=== PATIENT | male | born 1955 | race Caucasian/White ===

== ENCOUNTER 2017-03-08 14:08 | Emergency (ER) | payer OTHER ==
[~2017-03-08] VITALS: Ht 190.5 cm; Wt 105.0 kg
[2017-03-08 14:23] VITALS: BP 223/95; PULSE 50; RESP 16; TEMP 97.9; O2SAT 99
--- NOTE | 2017-03-08 14:57 | PD ---
HPI Chief Complaint: Back/ Neck Pain or Injury Time Seen by Provider: 14:40 Travel History International Travel<30 days: No Contact w/Intl Traveler<30days: No Traveled to known affect area: No History of Present Illness HPI 61yo M with PMH of alcohol abuse, multiple abdominal surgeries here with right lower back pain since yesterday. Pain is more paraspinal and right flank region and nonradiating. Had nausea and nonbloody vomiting today. Denies any fever, chest pain, sob, dysuria, hematuria, focal weakness or numbness, trauma. Denies any history of nephrolithiasis. PFSH Past Medical History Diminished Hearing: No Diverticulitis: Yes Hiatal Hernia: Yes Tetanus Vaccination: Unknown Influenza Vaccination: Yes ?: Not Past Surgical History Abdominal Surgery: Yes (Hernia repair multiple times, bowel resection, small bowel obstruction) Appendectomy: Yes Other Surgery: Yes (colostomy with reversal) Social History Alcohol Use: Yes (10/day) Tobacco Use: Yes (e cig) Substance Use: No Allergies-Medications (Allergen,Severity, Reaction): Coded Allergies: Penicillins (Verified Allergy, Unknown, 03/08/17) Reported Meds & Prescriptions Reported Meds & Active Scripts Active No Active Prescriptions or Reported Medications Review of Systems Except as stated in HPI: all other systems reviewed are Neg Physical Exam Narrative GENERAL: 61yo M in mild distress. SKIN: Focused skin assessment warm/dry. HEAD: Atraumatic. Normocephalic. EYES: Pupils equal and round. No scleral icterus. No injection or drainage. ENT: No nasal bleeding or discharge. Mucous membranes pink and moist. NECK: Trachea midline. No JVD. CARDIOVASCULAR: Regular rate and rhythm. No murmur appreciated. RESPIRATORY: No accessory muscle use. Clear to auscultation. Breath sounds equal bilaterally. GASTROINTESTINAL: Abdomen soft, +TTP epigastric region. +TTP right flank. No rebound tenderness or guarding. BACK: +CVA tenderness right. MUSCULOSKELETAL: No obvious deformities. No clubbing. No cyanosis. No edema. NEUROLOGICAL: Awake and alert. No obvious cranial nerve deficits. Motor grossly within normal limits. Normal speech. No saddle paresthesia. PSYCHIATRIC: Appropriate mood and affect; insight and judgment normal. Data Data Last Documented VS Vital Signs Date Time Temp Pulse Resp B/P (MAP) Pulse Ox O2 Delivery O2 Flow Rate FiO2 03/08/17 16:47 52 18 145/73 (97) 96 Room Air 03/08/17 14:23 97.9 Orders Orders Complete Blood Count With Diff (03/08/17 14:50) Comprehensive Metabolic Panel (03/08/17 14:50) Lipase (03/08/17 14:50) Prothrombin Time / Inr (Pt) (03/08/17 14:50) Act Partial Throm Time (Ptt) (03/08/17 14:50) Urinalysis - C+S If Indicated (03/08/17 14:50) Ct Abd/Pel W Iv Contrast(Rout) (03/08/17 14:50) Iv Access Insert/Monitor (03/08/17 14:50) Ecg Monitoring (03/08/17 14:50) Oximetry (03/08/17 14:50) Morphine Inj (Morphine Inj) (03/08/17 15:00) Ondansetron Inj (Zofran Inj) (03/08/17 15:00) Sodium Chloride 0.9% Flush (Ns Flush) (03/08/17 15:00) Electrocardiogram (03/08/17 14:50) Hydralazine Inj (Apresoline Inj) (03/08/17 15:45) Iohexol 350 Inj (Omnipaque 350 Inj) (03/08/17 16:03) Diazepam (Valium) (03/08/17 17:15) Labs Laboratory Tests Test 03/08/17 15:17 03/08/17 16:18 White Blood Count 9.6 TH/MM3 Red Blood Count 4.53 MIL/MM3 Hemoglobin 15.3 GM/DL Hematocrit 44.3 % Mean Corpuscular Volume 97.8 FL Mean Corpuscular Hemoglobin 33.7 PG Mean Corpuscular Hemoglobin Concent 34.5 % Red Cell Distribution Width 12.3 % Platelet Count 286 TH/MM3 Mean Platelet Volume 7.7 FL Neutrophils (%) (Auto) 80.5 % Lymphocytes (%) (Auto) 8.0 % Monocytes (%) (Auto) 5.9 % Eosinophils (%) (Auto) 0.2 % Basophils (%) (Auto) 5.4 % Neutrophils # (Auto) 7.7 TH/MM3 Lymphocytes # (Auto) 0.8 TH/MM3 Monocytes # (Auto) 0.6 TH/MM3 Eosinophils # (Auto) 0.0 TH/MM3 Basophils # (Auto) 0.5 TH/MM3 CBC Comment AUTO DIFF Differential Total Cells Counted 100 Neutrophils % (Manual) 81 % Band Neutrophils % 1 % Lymphocytes % 11 % Monocytes % 4 % Eosinophils % 1 % Basophils % 2 % Neutrophils # (Manual) 7.9 TH/MM3 Differential Comment FINAL DIFF MANUAL Platelet Estimate NORMAL Platelet Morphology Comment NORMAL Red Cell Morphology Comment NORMAL Prothrombin Time 11.6 SEC Prothromb Time International Ratio 1.1 RATIO Activated Partial Thromboplast Time 27.1 SEC Blood Urea Nitrogen 10 MG/DL Creatinine 1.00 MG/DL Random Glucose 144 MG/DL Total Protein 7.6 GM/DL Albumin 3.6 GM/DL Calcium Level 8.8 MG/DL Alkaline Phosphatase 76 U/L Aspartate Amino Transf (AST/SGOT) 27 U/L Alanine Aminotransferase (ALT/SGPT) 38 U/L Total Bilirubin 0.6 MG/DL Sodium Level 134 MEQ/L Potassium Level 3.8 MEQ/L Chloride Level 101 MEQ/L Carbon Dioxide Level 25.3 MEQ/L Anion Gap 8 MEQ/L Estimat Glomerular Filtration Rate 76 ML/MIN Lipase 149 U/L Urine Collection Type CLEAN CATCH Urine Color YELLOW Urine Turbidity CLEAR Urine pH 7.5 Urine Specific [place] 1.027 Urine Protein NEG mg/dL Urine Glucose (UA) NEG mg/dL Urine Ketones NEG mg/dL Urine Occult Blood TRACE Urine Nitrite NEG Urine Bilirubin NEG Urine Leukocyte Esterase NEG Urine WBC 0-2 /hpf Urine Bacteria FEW /hpf Urine Fine Granular Casts 0-2 /lpf Urine Yeast with Hyphae FEW Microscopic Urinalysis Comment CULT NOT INDICATED MDM Medical Decision Making Medical Screen Exam Complete: Yes Emergency Medical Condition: Yes Interpretation(s) EKG: Sinus bradycardia at 49bpm. No ST segment elevation or depression. Differential Diagnosis Nephrolithiasis vs. pyelonephritis vs. musculoskeletal pain vs. pancreatitis vs. gastritis Narrative Course 61yo M with right back/flank pain associated with nausea and vomiting. BP was elevated so given hydralazine and BP improved to 145/73. Labs reviewed, no leukocytosis. Creatinine normal. Lipase normal. LFTs normal. UA showed no blood or leukocyte. CT a/p showed degenerative changes lumbar spine. No renal stone or obstruction. Pt is well appearing and pain improved after morphine and valium. No red flags for back pain. Tolerating PO. Return precautions given. Diagnosis Primary Impression: Back pain Qualified Codes: M54.5 - Low back pain Patient Instructions: General Instructions Departure Forms: Tests/Procedures Additional Instructions: Please follow up with your primary care physician in 3-7 days. Return to the ED if symptoms worsen. Med/Other Pt SpecificInfo: Prescription(s) given Scripts Acetaminophen (Tylenol) 325 Mg Tab 650 MG PO Q6H Y for PAIN SCALE 1 TO 4, #20 TAB 0 Refills Prov: Steffi Bautista DO 03/08/17 Disposition: 01 DISCHARGE HOME Condition: Stable Steffi Bautista DO Mar 08, 2017 14:56
[2017-03-08] MEDS ORDERED: SODIUM CHLORIDE 0.9% FLUSH 10 ML FLUSH IV FLUSH PRN (15:00)
[2017-03-08] MEDS ORDERED: ONDANSETRON HCL 4 MG/2 ML VIAL IVP ONE (15:00)
[2017-03-08] MEDS ORDERED: MORPHINE SULFATE 4 MG/ML INJ IV PUSH ONE (15:00)
[2017-03-08 15:19] VITALS: O2SAT 96
[2017-03-08 15:23] LABS: AUTOMATED NEUTROPHIL # 7.7 TH/MM3 (1.8-7.7); BASOPHIL # 0.5 TH/MM3 (0-0.2); BASOPHIL % 5.4 % (0.0-2.0); EOSINOPHIL % 0.2 % (0.0-4.0); HEMATOCRIT 44.3 % (39.0-51.0); LYMPHOCYTE # 0.8 TH/MM3 (1.0-4.8); MEAN CELL VOLUME 97.8 FL (80.0-100.0); MEAN CORPUSCULAR HEMOGLOBIN 33.7 PG (27.0-34.0); MEAN CORPUSCULAR HGB CONC 34.5 % (32.0-36.0); MONO % 5.9 % (0.0-8.0); NEUT % 80.5 % (16.0-70.0); PLATELET COUNT 286 TH/MM3 (150-450); RED BLOOD COUNT 4.53 MIL/MM3 (4.50-5.90); RED CELL DISTRIBUTION WIDTH 12.3 % (11.6-17.2); WHITE BLOOD COUNT 9.6 TH/MM3 (4.0-11.0)
[2017-03-08 15:30] LABS: HEMO FLAGS AUTO DIFF
[2017-03-08 15:31] LABS: CHLORIDE 101 MEQ/L (98-107); POTASSIUM 3.8 MEQ/L (3.5-5.1); SODIUM (NA) 134 MEQ/L (136-145)
[2017-03-08 15:35] LABS: ANION GAP 8 MEQ/L (5-15); APTT (PATIENT) 27.1 SEC (24.3-30.1); BICARBONATE 25.3 MEQ/L (21.0-32.0); BLOOD UREA NITROGEN 10 MG/DL (7-18); INTERNATIONAL NORMALIZED RATIO 1.1 RATIO; PROTHROMBIN TIME - PATIENT 11.6 SEC (9.8-11.6)
[2017-03-08 15:38] LABS: ALT (GPT) 38 U/L (12-78); AST (GOT) 27 U/L (15-37); GLOMERULAR FILTRATION RATE 76 ML/MIN (>89)
[2017-03-08 15:39] LABS: TOTAL BILIRUBIN ADULT 0.6 MG/DL (0.2-1.0)
[2017-03-08 15:41] LABS: ALKALINE PHOSPHATASE 76 U/L (45-117)
[2017-03-08] MEDS ORDERED: hydrALAZINE HCL 20 MG/ML VIAL IV PUSH ONE (15:45)
[2017-03-08 15:50] LABS: BANDS 1 % (0-6); BASOPHILS 2 % (0-2); EOSINOPHILS 1 % (0-4); NEUTROPHIL # MANUAL DIFF 7.9 TH/MM3 (1.8-7.7); PLATELET ESTIMATE SMEAR NORMAL (NORMAL); PLATELET MORPHOLOGY NORMAL (NORMAL); POLYS (SEG NEUTROPHILS) 81 % (16-70); SCAN/DIFF FINAL DIFF MANUAL; WBC DIFF SAMPLE 100
[2017-03-08] MEDS ORDERED: IOHEXOL 350 MG/ML 10 ML VIAL (for RAD DIAG) IVCONTRAST ONE (16:03)
[2017-03-08 16:26] LABS: BLOOD, URINE TRACE (NEG); GLUCOSE,URINE NEG (NEG); KETONE, URINE NEG (NEG); NITRITE,URINE NEG (NEG); PH, URINE 7.5 (5.0-8.5)
--- NOTE | 2017-03-08 16:33 | RADRPT ---
EXAM DATE/TIME: 03/08/2017 15:56 [facility] COMPARISON: No previous studies available for comparison. INDICATIONS : Right sided lower back pain since yesterday. IV CONTRAST: 95 cc Omnipaque 350 (iohexol) IV ORAL CONTRAST: No oral contrast ingested. RADIATION DOSE: 20.40 CTDIvol (mGy) MEDICAL HISTORY : Diverticulitis. Hernia, hiatal. Small bowel obstruction SURGICAL HISTORY : Appendectomy. Hernia repair. Bowel resection. Colostomy with reversal. ENCOUNTER: Initial ACUITY: 2 days PAIN SCALE: 7/10 LOCATION: Right lower quadrant TECHNIQUE: Volumetric scanning of the abdomen and pelvis was performed. Using automated exposure control and ad justment of the mA and/or kV according to patient size, radiation dose was kept as low as reasonably achievable to obtain optimal diagnostic quality images. DICOM format image data is available electro nically for review and comparison. FINDINGS: Lung base is are clear. There is fatty replacement the liver. Gallstones are present in the benign-appearing gallbladder Spleen and pancreas unremarkable Lungs appear normal There is symmetrical renal function There is no retroperitoneal adenopathy There is moderate atherosclerotic calcification in the distal aorta without dilatation There are no inflammatory changes evident in the abdomen Multiple diverticuli are present in the sigmoid colon There is no evidence for diverticulitis Review of bone windows reveals degenerative changes in the lumbar spine. CONCLUSION: 1. Degenerative changes lumbar spine 2. No renal stone or obstruction. 3. Diverticuli sigmoid colon without diverticulitis James Gil MD FACR on March 08, 2017 at 16:29 Board Certified Radiologist. This report was verified electronically.
[2017-03-08 16:34] LABS: METHOD OF COLLECTION CLEAN CATCH; URINE COLOR YELLOW (YELLW/STRAW)
[2017-03-08 16:36] LABS: BACTERIA, URINE FEW /hpf; WBC, URINE 0-2 /hpf (0-5)
[2017-03-08 16:37] LABS: COMMENT (UR) CULT NOT INDICATED; CULTURE IF INDICATED CULT NOT INDICATED
[2017-03-08 16:47] VITALS: BP 145/73; PULSE 52; RESP 18; O2SAT 96
[2017-03-08] MEDS ORDERED: TYLE325T PO (17:11)
[2017-03-08] MEDS ORDERED: DIAZEPAM 5 MG TAB PO ONE (17:15)
--- NOTE | 2017-03-08 21:48 | EKG ---
Date Performed: 03/08/2017 Time Performed: 15:21:09 PTAGE: 61 years EKG: SINUS BRADYCARDIA BORDERLINE ECG NO PREVIOUS TRACING DOCTOR: Tamika Beauchamp Interpretating Date/Time 03/08/2017 21:47:32
== END 2017-03-08 17:56 | disposition home or self-care (01) ==
LOC: PHED 14:08
DX: M54.5 Low back pain (principal); R00.1 Bradycardia, unspecified; F17.290 Nicotine dependence, other tobacco product, uncomplicated
CPT/HCPCS: 74177; 80053; 81001; 83690; 85007; 85027; 85610; 85730; 93005; 96374; 96375; 99285; J2270; J2405; Q9967

== ENCOUNTER 2017-03-23 10:06 | Emergency (ER) | payer OTHER ==
[~2017-03-23] VITALS: Ht 193 cm; Wt 100.0 kg
[~2017-03-23 10:06] MED LIST: TYLE325T PO
[2017-03-23 10:14] VITALS: BP 155/88; PULSE 85; RESP 16; TEMP 98.2; O2SAT 99
[2017-03-23] MEDS ORDERED: TRAM50TA PO (10:44)
[2017-03-23] MEDS ORDERED: DEXAMETHASONE SOD PHOS 4 MG/ML VIAL IM ONE (10:45)
[2017-03-23] MEDS ORDERED: KETOROLAC TROMETHAMINE 60 MG/2 ML (IM) VIAL IM ONE (10:45)
[2017-03-23] MEDS ORDERED: PANT20 PO (10:53)
[2017-03-23] MEDS ORDERED: PRED20 PO (10:53)
--- NOTE | 2017-03-23 10:53 | PD ---
HPI Chief Complaint: GI Complaint Time Seen by Provider: 10:23 Travel History International Travel<30 days: No Contact w/Intl Traveler<30days: No Traveled to known affect area: No History of Present Illness HPI 61-year-old male complains of low back pain and right leg pain. Patient was seen in emergency room on March 08, 2017 for right low back pain. Patient had CT scan abdomen and pelvis and lumbar spine and blood tests done at that time. CT abdomen and pelvis and lumbar spine shows DJD changes of the lumbar spine. Patient was given Valium and morphine in the ED with good relief of the pain. Patient was advised to take Tylenol for pain. Patient was seen by personal physician for follow-up. Patient was given prescription for tramadol. Patient has been taking tramadol as directed for back pain. Patient states the pain gets worse for the past several days. Patient states the pain is sharp shooting pain started on the lower back area with radiation to the anterior aspect the right thigh. Patient denies any recent injury. Patient also has constipation and has been taking Metamucil with relief of the symptoms. Patient denies any nausea vomiting diarrhea. Patient complains of numbness sensation on the right leg. Patient states that the pain on the right leg is worse with weightbearing and walking. Patient denies any fever or chills. Patient denies any saddle paresthesia. Patient denies any urinary or bowel incontinence. Patient status post partial colostomy secondary to perforated diverticulitis with colostomy and reversal subsequently in the past. PFSH Past Medical History Hx Anticoagulant Therapy: No Diabetes: No Diminished Hearing: No Diverticulitis: Yes Hiatal Hernia: Yes Past Surgical History Abdominal Surgery: Yes (Hernia repair multiple times, bowel resection, small bowel obstruction) Appendectomy: Yes Other Surgery: Yes (colostomy with reversal) Social History Alcohol Use: Yes (10/day) Tobacco Use: Yes (e cig) Substance Use: No Allergies-Medications (Allergen,Severity, Reaction): Coded Allergies: Penicillins (Verified Allergy, Unknown, 03/23/17) Reported Meds & Prescriptions Reported Meds & Active Scripts Active Tylenol (Acetaminophen) 325 Mg Tab 650 Mg PO Q6H PRN Review of Systems General / Constitutional: No: Fever Eyes: No: Visual changes HENT: No: Headaches Cardiovascular: No: Chest Pain or Discomfort Respiratory: No: Shortness of Breath Gastrointestinal: No: Abdominal Pain Genitourinary: No: Dysuria Musculoskeletal: No: Pain Skin: No Rash Neurologic: No: Weakness Psychiatric: No: Depression Endocrine: No: Polydipsia Hematologic/Lymphatic: No: Easy Bruising Physical Exam Narrative GENERAL: Well-nourished, well-developed patient. SKIN: Focused skin assessment warm/dry. HEAD: Normocephalic. EYES: No scleral icterus. No injection or drainage. NECK: Supple, trachea midline. No JVD or lymphadenopathy. CARDIOVASCULAR: Regular rate and rhythm without murmurs, gallops, or rubs. RESPIRATORY: Breath sounds equal bilaterally. No accessory muscle use. GASTROINTESTINAL: Abdomen soft, non-tender, nondistended. MUSCULOSKELETAL: No cyanosis, or edema. BACK: Nontender without obvious deformity. No CVA tenderness. Patient has moderate tenderness on palpation anterior aspect of the right hip joint. Full range of motion the right hip. No redness no heat noted rash noted. Data Data Last Documented VS Vital Signs Date Time Temp Pulse Resp B/P (MAP) Pulse Ox O2 Delivery O2 Flow Rate FiO2 03/23/17 10:14 98.2 85 16 155/88 (110) 99 Orders Orders Ketorolac Inj (Toradol Inj) (03/23/17 10:45) Dexamethasone Inj (Decadron Inj) (03/23/17 10:45) MDM Medical Decision Making Medical Screen Exam Complete: Yes Emergency Medical Condition: Yes Medical Record Reviewed: Yes Differential Diagnosis Differential diagnosis including acute exacerbation of low back pain, radiculopathy, neuralgia, tendinitis, bursitis. Narrative Course 61-year-old male with anterior right hip joint pain with pain radiation down to the right anterior thigh area. Toradol 60 mg IM. Decadron 8 mg IM. Diagnosis Primary Impression: Tendinitis Additional Impression: Radiculopathy Qualified Codes: M54.10 - Radiculopathy, site unspecified Patient Instructions: General Instructions Additional Instructions: Prednisone as directed. Continue with tramadol as directed. Follow-up with orthopedist. Med/Other Pt SpecificInfo: Prescription(s) given Scripts Pantoprazole (Protonix) 20 Mg Tab 20 MG PO DAILY for Reflux, #7 TAB 0 Refills Prov: Praneeth Colon MD 03/23/17 Prednisone (Prednisone) 20 Mg Tab 20 MG PO BID, #20 TAB 0 Refills Prov: Praneeth Colon MD 03/23/17 Disposition: 01 DISCHARGE HOME Condition: Stable Praneeth Colon MD Mar 23, 2017 10:53
[2017-03-23 11:34] VITALS: BP 141/88
== END 2017-03-23 11:35 | disposition home or self-care (01) ==
LOC: PHED 10:06
DX: M77.9 Enthesopathy, unspecified (principal); M54.10 Radiculopathy, site unspecified; Z72.0 Tobacco use; F10.20 Alcohol dependence, uncomplicated
CPT/HCPCS: 96372; 99284; J1100; J1885

== ENCOUNTER 2017-09-07 08:11 | Emergency (ER) | payer OTHER ==
[~2017-09-07] VITALS: Ht 191.8 cm; Wt 103.3 kg
[~2017-09-07 08:11] MED LIST changes: +PANT20 PO; +PRED20 PO; +TRAM50TA PO
[2017-09-07 08:14] VITALS: BP 192/93; PULSE 69; RESP 16; TEMP 98; O2SAT 95
[2017-09-07] MEDS ORDERED: MECLIZINE HCL 25 MG TAB PO ONE (08:45)
--- NOTE | 2017-09-07 08:54 | PD ---
HPI Chief Complaint: Dizziness Time Seen by Provider: 08:18 Travel History International Travel<30 days: No Contact w/Intl Traveler<30days: No Traveled to known affect area: No History of Present Illness HPI This 62-year-old male is complaining of dizziness. He says this started this morning when he rolled over in bed around 4 AM. There was quite severe very briefly and then has subsided. He has had some several episodes since then but has some persistent dizziness. Yesterday he was quite congested and was trying to clear his ears. He has been swimming. He had some pain in his right arm at the top of the arm and also a little bit pain in the wrist this morning this pain has subsided. It was not severe. He rated it as a 1. He is not short of breath. He does not have headache. He is generally healthy does not take any medications. PFSH Past Medical History Hx Anticoagulant Therapy: No Diabetes: No Diminished Hearing: No Diverticulitis: Yes (perforated ) Hiatal Hernia: Yes Influenza Vaccination: Yes Past Surgical History Abdominal Surgery: Yes (Hernia repair multiple times, bowel resection, small bowel obstruction) Appendectomy: Yes Other Surgery: Yes (colostomy with reversal) Social History Alcohol Use: Yes (6 to 7 daily) Tobacco Use: Yes (1 1/2 PPD) Substance Use: No Allergies-Medications (Allergen,Severity, Reaction): Coded Allergies: Penicillins (Verified Allergy, Severe, VOMITING, 09/07/17) Reported Meds & Prescriptions Reported Meds & Active Scripts Active Review of Systems Except as stated in HPI: all other systems reviewed are Neg General / Constitutional: No: Fever, Chills Eyes: No: Diploplia HENT: Positive: Congestion, No: Headaches Cardiovascular: No: Chest Pain or Discomfort, Palpitations Respiratory: No: Cough, Shortness of Breath Gastrointestinal: No: Vomiting, Diarrhea Genitourinary: No: Frequency Musculoskeletal: No: Myalgias Neurologic: Positive: Dizziness, No: Syncope, Focal Abnormalities Hematologic/Lymphatic: No: Easy Bruising Physical Exam Narrative GENERAL: Well-developed male SKIN: Focused skin assessment warm/dry. HEAD: Atraumatic. Normocephalic. EYES: Pupils equal and round. No scleral icterus. No injection or drainage. No nystagmus is noted ENT: No nasal bleeding or discharge. Mucous membranes pink and moist. NECK: Trachea midline. No JVD. CARDIOVASCULAR: Regular rate and rhythm. No murmur appreciated. RESPIRATORY: No accessory muscle use. Clear to auscultation. Breath sounds equal bilaterally. GASTROINTESTINAL: Abdomen soft, non-tender, nondistended. Hepatic and splenic margins not palpable. MUSCULOSKELETAL: No obvious deformities. No clubbing. No cyanosis. No edema. NEUROLOGICAL: Awake and alert. No obvious cranial nerve deficits. Motor grossly within normal limits. Normal speech. PSYCHIATRIC: Appropriate mood and affect; insight and judgment normal. Data Data Last Documented VS Vital Signs Date Time Temp Pulse Resp B/P (MAP) Pulse Ox O2 Delivery O2 Flow Rate FiO2 09/07/17 08:14 98.0 69 16 192/93 (126) 95 Orders Orders Electrocardiogram (09/07/17 08:32) Meclizine (Antivert) (09/07/17 08:45) [facility] Medical Decision Making Medical Screen Exam Complete: Yes Emergency Medical Condition: Yes Medical Record Reviewed: Yes Differential Diagnosis Differential includes labyrinthitis, BPPV, vestibular neuronitis, CVA Narrative Course Patient has isolated vertigo which is clearly positional. It is in the context of respiratory congestion. I will recommend Antivert. I did do an EKG because of this pain in his arms EKG shows normal sinus rhythm. This pain appears to be musculoskeletal Diagnosis Primary Impression: Acute onset of severe vertigo Scripts Meclizine (Meclizine) 25 Mg Tab 25 MG PO TID Y for VERTIGO, #20 TAB 0 Refills Prov: Dane Saunders MD 09/07/17 Disposition: 01 DISCHARGE HOME Condition: Stable Dane Saunders MD Sep 07, 2017 08:54
[2017-09-07] MEDS ORDERED: MECL-62 PO (08:56)
[2017-09-07 09:05] VITALS: BP 153/83; PULSE 62; RESP 18; O2SAT 95
--- NOTE | 2017-09-07 18:21 | EKG ---
Date Performed: 09/07/2017 Time Performed: 08:36:04 PTAGE: 62 years EKG: Sinus rhythm NORMAL ECG PREVIOUS TRACING : 03/08/2017 15.21 Since the previous tracing, no significant change noted DOCTOR: Tamika Beauchamp Interpretating Date/Time 09/07/2017 18:20:09
== END 2017-09-07 09:29 | disposition home or self-care (01) ==
LOC: PHED 08:11
DX: R42 Dizziness and giddiness (principal); F17.200 Nicotine dependence, unspecified, uncomplicated
CPT/HCPCS: 93005; 99283